=== PATIENT | female | born 2000 | race Asian ===

== ENCOUNTER 2023-02-20 18:28 | Emergency (ER) | payer OTHER ==
[~2023-02-20] VITALS: Ht 160 cm; Wt 102.4 kg
[2023-02-20 22:02] LABS: HCG, SERUM QUALITATIVE NEGATIVE (NEGATIVE)
[2023-02-20 22:35] VITALS: BP 141/95
== END 2023-02-20 22:40 | disposition home or self-care (01) ==
LOC: M ED 18:28
DX: N93.9 Abnormal uterine and vaginal bleeding, unspecified (principal)

== ENCOUNTER → 2024-07-01 | Outpatient (REF) | payer OTHER | LOC: M LAB REF 21:23 | PROVIDERS: ATTEND Physician Assistant Medical | DX: Z34.00 Encounter for supervision of normal first pregnancy, unspecified trimester (principal) ==